=== PATIENT | female | born 1980 | race Caucasian/White ===

== ENCOUNTER 2017-07-21 08:58 | Emergency (ER) | payer SELFPAY ==
[2017-07-21 09:06] VITALS: BMI 33.4
[2017-07-21] MEDS ORDERED: NS 1000 ML 1,000 ML IV ONE (09:47)
[2017-07-21] MEDS ORDERED: NS 1000 ML 1,000 ML ONE (09:49)
--- NOTE | 2017-07-21 09:52 | DR.GENAD ---
HPI - PCP Primary Care Physician: riaz Plummer - Complaint/Symptoms Chief Complaint Doctors Comments: Patient states that he has not been feeling well for the past two weeks. He states that his started last week when he was working to build a sand well. Keara valadez has not had much energy. He admits to smoking but deneis alchols or cardiopulmonary disease. Spouse reports that patient has had a cough for the past six months. Chief Complaint:: "been down since last weekend, just not feeling right dizzy pt has high blood pressure but does not take meds for it" - Source History Provided: Patient - Mode of Arrival Mode of Arrival: Ambulatory - Timing Onset of Chief Complaint: 07/15/17 PMH - PMH Past Medical History: Yes Past Medical History: Hypertension Past Surgical History: Yes Surgical History: Appendectomy Past Surgical History Comment: left leg - Family History History of Family Medical Conditions: Yes Family Medical History: Diabetes Mellitus, Heart Failure, Hypertension - Social History Does patient currently use any type of tobacco product: Yes Have you used tobacco products in the last 12 months: Yes Type of Tobacco Use: Cigarettes How many years tobacco product used: 30 Does any household member use tobacco: No Alcohol Use: None Do you use any recreational Drugs:: Yes (weed) Lives With: Family Lives Where: Home - infectious screening In the last 2 months have you had wt loss of >10#?: NO Have you had fever, night sweats or hemotysis?: No Have you traveled outside the country in the last 6 months?: No Isolation: Standard ROS - Review of Systems Eyes: No Symptoms Reported ENTM: No Symptoms Reported Respiratoy: No Symptoms Reported Cardiovascular: No Symptoms Reported Gastrointestinal/Abdominal: No Symptoms Reported Genitourinary: No Symptoms Reported Neurological: No Symptoms Reported Musculoskeletal: No Symptoms Reported Integumentary: No Symptoms Reported Hematologic/Lymphatic: No Symptoms Reported Endocrine: No Symptoms Reported Psychiatric: No Symptoms Reported All Other Systems: Reviewed and Negative PE - Vital Signs Vitals: Temperature 98.3 F Pulse Rate [Apical] 110 Pulse Rate 100 Respiratory Rate 18 Blood Pressure [Right Arm] 140/94 Blood Pressure 144/99 O2 Sat by Pulse Oximetry 95 - General Limitations: No Limitations General Appearance: Alert, In No Apparent Distress, Anxious - Head Head Exam: Normal Inspection, Atraumatic - Eyes Eye exam: Normal Appearance, PERRL, EOMI - ENT ENT Exam: Normal Exam External Ear Exam: Normal External Inspection TM/Canal Exam: Bilateral Normal Nose Exam: Normal Nose Exam Mouth Exam: Normal Inspection Throat Exam: Normal Inspection - Neck Neck Exam: Normal Inspection - Chest Chest Inspection: Normal Inspection - Respiratory Respiratory Exam: Normal Lung Sounds Bilat Respiratory Exam: Bilateral Clear to Auscultation - Cardiovascular Cardiovascular Exam: Regular Rate, Normal Rhythm - Abdominal Exam Abdominal Exam: Normal Inspection Abdominal Tenderness: negative: RUQ, RLQ, LUQ, LLQ, Epigastrium, Suprapubic, Diffuse, Mild, Moderate, Severe, Other - Extremities Extremities Exam: Normal Inspection, Full ROM - Back Back Exam: Normal Inspection, Full ROM - Neurologic Neurological Exam: Alert, Oriented X3, CN II-XII Intact - Skin Skin Exam: Warm, Dry, Intact Course - Reevaluation 1st: Improved ROR - Labs Reviewed Result Diagrams: 07/21/17 10:00 07/21/17 10:00 Laboratory: WBC 10.5 X10^3/uL (3.6-10.0) H 07/21/17 10:00 RBC 4.95 X10^6/uL (3.5-5.4) 07/21/17 10:00 Hgb 14.9 g/dL (12.0-16.0) 07/21/17 10:00 Hct 43.5 % (36.0-47.0) 07/21/17 10:00 MCV 87.9 fL (80.0-100.0) 07/21/17 10:00 MCH 30.0 pg (27.0-34.0) 07/21/17 10:00 MCHC 34.2 g/dL (33.0-35.0) 07/21/17 10:00 RDW 13.5 % (11.6-16.5) 07/21/17 10:00 Plt Count 239 X10^3/uL (150.0-450.0) 07/21/17 10:00 MPV 8.5 fL (7.4-11.0) 07/21/17 10:00 Neut % (Auto) 65.7 % (42.0-75.0) 07/21/17 10:00 Lymph % (Auto) 25.7 % (21.0-51.0) 07/21/17 10:00 [place] % (Auto) 6.5 % (0.0-13.0) 07/21/17 10:00 Eos % (Auto) 1.4 % (0.9-2.9) 07/21/17 10:00 Baso % (Auto) 0.7 % (0.2-1.0) 07/21/17 10:00 Neut # (Auto) 6.9 x10^3/uL (2.2-4.8) H 07/21/17 10:00 Lymph # (Auto) 2.7 X10^3/uL (1.3-2.9) 07/21/17 10:00 [place] # (Auto) 0.7 x10^3/uL (0.3-0.8) 07/21/17 10:00 Eos # (Auto) 0.1 x10^3/uL (0.0-0.2) 07/21/17 10:00 Baso # (Auto) 0.1 X10^3/uL (0.0-0.1) 07/21/17 10:00 Absolute Nucleated RBC 0.1 /100WBC 07/21/17 10:00 D-Dimer 281 ng/mL (0-400) 07/21/17 10:00 Sodium 139 mmol/L (136-145) 07/21/17 10:00 Corrected Sodium 139 mmol/L (136-145) 07/21/17 10:00 Potassium 3.8 mmol/L (3.5-5.1) 07/21/17 10:00 Chloride 106 mmol/L (98-107) 07/21/17 10:00 Carbon Dioxide 23.4 mmol/L (21-32) 07/21/17 10:00 BUN 14 mg/dL (7-18) 07/21/17 10:00 Creatinine 1.05 mg/dL (0.55-1.02) H 07/21/17 10:00 Est GFR (MDRD) Af Amer > 60 (>60) 07/21/17 10:00 Est GFR (MDRD) Non-Af > 60 (>60) 07/21/17 10:00 Glucose 117 mg/dL (65-99) H 07/21/17 10:00 Calcium 7.8 mg/dL (8.5-10.1) L 07/21/17 10:00 Corrected Calcium 8.4 mg/dL (8.5-10.1) L 07/21/17 10:00 Total Bilirubin 0.50 mg/dL (0.2-1.0) 07/21/17 10:00 AST 16 Units/L (15-37) 07/21/17 10:00 ALT 29 Units/L (12-78) 07/21/17 10:00 Alkaline Phosphatase 80 Units/L (46-116) 07/21/17 10:00 Creatine Kinase 91 Units/L (26-192) 07/21/17 10:00 CK-MB (CK-2) 2.1 ng/mL (0-4.0) 07/21/17 10:00 CK/CKMB % Calc 2.3 % (<4) 07/21/17 10:00 Troponin I < 0.02 ng/mL (0-1.5) 07/21/17 10:00 Total Protein 6.6 g/dL (6.4-8.2) 07/21/17 10:00 Albumin 3.2 g/dL (3.4-5.0) L 07/21/17 10:00 Globulin 3.4 g/dL (2.5-4.5) 07/21/17 10:00 Albumin/Globulin Ratio 0.9 Ratio (1.1-2.1) L 07/21/17 10:00 - XRAY XRAY Interpreted by: Radiologist (Repeat Carmelo PA/Lat: There is again noted to be prominent lung marknings bilaterally. This may be due to chornic interstitial scarring versus interstitial prnumonia or edema. Mild cardiomegaly is presrnt. No acute bony abnormalitires are identified Impression : Mild cardiomegaly. 2. Prominent lung markings bilaterally suggestive of either chronic interstitial scarring, minimal intestitial edema or interstial pneumonititis or a combination thereof..) - Diagnosis Discharge Problem: Pneumonitis, Cardiomegaly, Chronic cough - Discharge Plan Condition: Stable - Follow ups/Referrals Follow ups/Referrals: LADONNA LAURENT [Primary Care Provider] - 3 days - Instructions
[2017-07-21 10:09] LABS: BASOPHILS # (AUTO) 0.1 X10^3/uL (0.0-0.1); BASOPHILS % (AUTO) 0.7 % (0.2-1.0); EOSINOPHILS # (AUTO) 0.1 x10^3/uL (0.0-0.2); EOSINOPHILS % (AUTO) 1.4 % (0.9-2.9); HEMATOCRIT 43.5 % (36.0-47.0); HEMOGLOBIN 14.9 g/dL (12.0-16.0); LYMPHOCYTES # (AUTO) 2.7 X10^3/uL (1.3-2.9); LYMPHOCYTES % (AUTO) 25.7 % (21.0-51.0); MEAN CORPUSCULAR HGB CONC 34.2 g/dL (33.0-35.0); MEAN CORPUSCULAR VOLUME 87.9 fL (80.0-100.0); MEAN PLATELET VOLUME 8.5 fL (7.4-11.0); MONOCYTES # (AUTO) 0.7 x10^3/uL (0.3-0.8); MONOCYTES % (AUTO) 6.5 % (0.0-13.0); NEUTROPHILS # (AUTO) 6.9 x10^3/uL (2.2-4.8); NEUTROPHILS % (AUTO) 65.7 % (42.0-75.0); PLATELET COUNT 239 X10^3/uL (150.0-450.0); RED BLOOD COUNT 4.95 X10^6/uL (3.5-5.4); RED CELL DISTRIBUTION WIDTH 13.5 % (11.6-16.5); WHITE BLOOD COUNT 10.5 X10^3/uL (3.6-10.0)
--- NOTE | 2017-07-21 10:14 | RAD ---
HISTORY: Tachycardia Study: Single view chest Comparison:None Findings: A single upright portable view is submitted. Exam is limited by underpenetration. Heart size is withi n normal limits. Nonspecific interstitial changes are seen in the lungs that could reflect underlying parenchymal disease versus artifact. No acute infiltrate, pneumothorax or effusion is identified. T he soft tissues are unremarkable. IMPRESSION: 1. Nonspecific reticulonodular interstitial changes that may be due to underlying parenchymal disease versus artifact. No acute infiltrate identified. Reported By:
[2017-07-21 10:33] LABS: BLOOD UREA NITROGEN 14 mg/dL (7-18); CALCIUM 7.8 mg/dL (8.5-10.1); CARBON DIOXIDE 23.4 mmol/L (21-32); CHLORIDE 106 mmol/L (98-107); COR NA(FOR HYPERGLY) 139 mmol/L (136-145); CREATININE 1.05 mg/dL (0.55-1.02); SODIUM 139 mmol/L (136-145); TROPONIN I < 0.02 ng/mL (0-1.5); eGFR BLACK RACES > 60 (>60); eGFR NON BLACK RACES > 60 (>60)
[2017-07-21 10:36] VITALS: BP 140/94
[2017-07-21 10:37] LABS: ALANINE AMINOTRANSFERASE 29 Units/L (12-78); ALBUMIN 3.2 g/dL (3.4-5.0); ALKALINE PHOSPHATASE 80 Units/L (46-116); ASPARTATE AMINO TRANSFERASE 16 Units/L (15-37); CKMB % 2.3 % (<4); COR CA(FOR HYPOALB) 8.4 mg/dL (8.5-10.1); CREATINE KINASE 91 Units/L (26-192); CREATINE KINASE MB 2.1 ng/mL (0-4.0); TOTAL PROTEIN 6.6 g/dL (6.4-8.2)
--- NOTE | 2017-07-21 10:42 | RAD ---
HISTORY: Tachycardia Study: PA and lateral chest Comparison: 07/21/2017 at 10:09 a.m. Findings: There is again noted to be prominent lung markings bilaterally. This may be due to chronic interstit ial scarring versus interstitial pneumonia or edema. Mild cardiomegaly is present. No acute bony ab normalities are identified. IMPRESSION: 1. Mild cardiomegaly. 2. Prominent lung markings bilaterally suggestive of either chronic interstitial scarring, minimal i nterstitial edema or interstitial pneumonitis or a combination thereof. Clinical correlation is sam mmended. Reported By:
[2017-07-21] MEDS ORDERED: DUONEB 0.5 MG/3 MG NEB ONE (10:58)
[2017-07-21] MEDS ORDERED: DUONEB 0.5 MG/3 MG ONE (11:12)
[2017-07-21] MEDS ORDERED: SOLU-Medrol 125 MG VIAL IVP ONE (11:27)
[2017-07-21] MEDS ORDERED: SOLU-Medrol 125 MG VIAL ONE (11:27)
== END 2017-07-21 11:36 | disposition home or self-care (01) ==
LOC: ER 09:11
DX: J18.9 Pneumonia, unspecified organism (principal); I51.7 Cardiomegaly; R05 Cough; R94.31 Abnormal electrocardiogram [ECG] [EKG]
CPT/HCPCS: 36415; 71045; 71046; 80053; 82550; 82553; 84484; 85025; 85378; 93005; 93010; 96365; 96374; 99283; 99284; A4222; J2930; J7620

== ENCOUNTER 2025-01-13 19:24 | Observation (INO) ==
--- NOTE | 2025-01-13 19:48 | EKG ---
Test Reason : shortness of breath Blood Pressure : */* mmHG Vent. Rate : 113 BPM Atrial Rate : 113 BPM P-R Int : 152 ms QRS Dur : 96 ms QT Int : 368 ms P-R-T Axes : 72 28 20 degrees QTc Int : 504 ms Sinus tachycardia Possible Left atrial enlargement Nonspecific T wave abnormality Abnormal ECG When compared with ECG of 10-JAN-2025 12:37, No significant change was found Confirmed by Bakari Wright MD ([id number]) on 01/14/2025 7:54:45 AM Referred By: Confirmed By: Bakari Wright MD
--- NOTE | 2025-01-13 20:11 | DR.SOBA ---
HPI Time Seen Time Seen by Provider: 01/13/25 20:11 Primary Care Physician Primary Care Physician: Elian Trejo Complaints Chief Complaint Doctors Comments: Patient was recently in the ER with worsening congestive heart failure since he stopped taking his Lasix due to not following up with his primary care after he moved. He has not followed up with his call center nurse due to difficulty with transportation but on last visit he was told he had ejection fraction of 15%. Patient admits he has not started to his fluid restriction but did take his oral Lasix. He had not wanted to be admitted on last visit wanting to try outpatient treatment first. Chief Complaint:: Pt ambulatory into ER c/o shortness of breath thats been on going for two weeks. Patient states he was seen in the ER here 2 days ago for the same complication and was discharged home on Lasix. Patient states he feels as if his symptoms have progessively became worse and causing him to have an increase in anxiety and panic attacks. Patient is SOB during exertion in triage. Pt denies chest pain, pressure or palpitations at this time. COVID-19 Coronavirus risk:travel/contact w/high risk person: No Has patient experienced Coronavirus symptoms: No Coronavirus symptoms experienced: Shortness of Breath Source History Provided: Patient Mode of Arrival Mode of Arrival: Ambulatory Timing Onset of Chief Complaint: 12/30/24 PMH PMH Past Medical History: Yes Past Medical History: CHF and Hypertension Past Surgical History: Yes Surgical History: Appendectomy and Ortho Surgery Past Surgical History Comment: defibrillator/pacemaker Family History History of Family Medical Conditions: Yes Family Medical History: Diabetes Mellitus, Cancer, [place], Heart Failure and Hypertension Social History Does patient currently use any type of tobacco product: No Have you used tobacco products in the last 12 months: No Does any household member use tobacco: No Alcohol Use: None Do you use any recreational Drugs:: Yes (Marijuana) Lives With: Family Lives Where: Home Travel Risk Coronavirus risk:travel/contact w/high risk person: No Has patient experienced Coronavirus symptoms: No Coronavirus symptoms experienced: Shortness of Breath Infectious screening In the last 2 months have you had wt loss of >10#?: NO Have you had fever, night sweats or hemotysis?: No Have you traveled outside the country in the last 6 months?: No Isolation: Standard ROS Review of Systems Constitutional: No Symptoms Reported Eyes: No Symptoms Reported ENTM: No Symptoms Reported Respiratoy: See HPI and Short of Breath; negative Wheezing Cardiovascular: See HPI; negative Chest Pain, Edema, Palpitations or Syncope Gastrointestinal/Abdominal: No Symptoms Reported Genitourinary: No Symptoms Reported Neurological: No Symptoms Reported Musculoskeletal: No Symptoms Reported Integumentary: No Symptoms Reported Hematologic/Lymphatic: No Symptoms Reported Endocrine: No Symptoms Reported Psychiatric: No Symptoms Reported All Other Systems: Reviewed and Negative PE Vital Signs Vitals: Vital Signs Temperature 98.0 F Pulse Rate 109 Pulse Rate 112 Pulse Rate 114 Pulse Rate 110 Respiratory Rate 35 Respiratory Rate 31 Respiratory Rate 22 Blood Pressure 144/92 Blood Pressure 146/91 O2 Sat by Pulse Oximetry 95 O2 Sat by Pulse Oximetry 96 O2 Sat by Pulse Oximetry 97 O2 Sat by Pulse Oximetry 98 General Limitations: No Limitations General Appearance: Alert and In No Apparent Distress Head Head Exam: Normal Inspection Eyes Eye exam: Normal Appearance ENT ENT Exam: Normal Exam Neck Neck Exam: Normal Inspection Chest Chest Inspection: Normal Inspection Respiratory Respiratory Exam: Other (Coarse bilaterally) Cardiovascular Cardiovascular Exam: Regular Rate and Normal Rhythm Abdominal Exam Abdominal Exam: Normal Inspection, Normal Bowel Sounds and Soft Extremities Extremities Exam: Normal Inspection Back Back Exam: Normal Inspection Neurologic Neurological Exam: Alert and Oriented X3 Psychiatric Psychiatric Exam: Normal Affect and Normal Mood Skin Skin Exam: Warm, Dry, Intact and Normal Color COURSE Treatment Treatment: Discussed results of workup with patient. He is agreeable to admission at this time. No pulmonary embolism but he does have significant CHF exacerbation. Consultation Called: 22:24 Consultation Comments: Discussed case with Dr. Trujillo and she is agreeable to admission ROR Labs Reviewed Laboratory Results Reviewed?: Yes 01/13/25 20:01 01/13/25 20:01 Laboratory: WBC 11.2 X10^3/uL (3.6-10.0) H 01/13/25 20: RBC 5.00 X10^6/uL (4.7-6.0) 01/13/25 20:01 Hgb 14.8 g/dL (13.5-18.0) 01/13/25 20: Hct 44.8 % (42.0-54.0) 01/13/25 20: MCV 89.6 fL (80.0-100.0) 01/13/25 20: MCH 29.7 pg (27.0-34.0) 01/13/25 20:01 MCHC 33.1 g/dL (33.0-35.0) 01/13/25 20: RDW 14.3 % (11.6-16.5) 01/13/25 20: Plt Count 287 X10^3/uL (150.0-450.0) 01/13/25 20: MPV 8.9 fL (7.4-11.0) 01/13/25 20: Neut % (Auto) 68.1 % (42.0-75.0) 01/13/25 20: Lymph % (Auto) 23.1 % (21.0-51.0) 01/13/25 20: [place] % (Auto) 6.9 % (0.0-13.0) 01/13/25 20: Eos % (Auto) 1.3 % (0.9-2.9) 01/13/25 20: Baso % (Auto) 0.6 % (0.2-1.0) 01/13/25 20: Neut # (Auto) 7.6 x10^3/uL (2.2-4.8) H 01/13/25 20: Lymph # (Auto) 2.6 X10^3/uL (1.3-2.9) 01/13/25 20:01 [place] # (Auto) 0.8 x10^3/uL (0.3-0.8) 01/13/25 20:01 Eos # (Auto) 0.1 x10^3/uL (0.0-0.2) 01/13/25 20:01 Baso # (Auto) 0.1 X10^3/uL (0.0-0.1) 01/13/25 20: Absolute Nucleated RBC 0.1 /100WBC 01/13/25 20: D-Dimer 1.30 ug/ml (0.0-0.57) H 01/13/25 20:01 Sodium 143 mmol/L (136-145) 01/13/25 20:01 Corrected Sodium 143 mmol/L (136-145) 01/13/25 20: Potassium 3.2 mmol/L (3.5-5.1) L 01/13/25 20: Chloride 102 mmol/L (98-107) 01/13/25 20: Carbon Dioxide 29.9 mmol/L (21-32) 01/13/25 20: BUN 10 mg/dL (7-18) 01/13/25 20: Creatinine 1.42 mg/dL (0.70-1.30) H 01/13/25 20:01 Est GFR (MDRD) Af Amer > 60 (>60) 01/13/25 20:01 Est GFR (MDRD) Non-Af 57 (>60) L 01/13/25 20: Glucose 114 mg/dL (65-99) H 01/13/25 20: Calcium 8.3 mg/dL (8.5-10.1) L 01/13/25 20: Corrected Calcium TNP 01/13/25 20: Total Bilirubin 0.90 mg/dL (0.2-1.0) 01/13/25 20:01 AST 43 Units/L (15-37) H 01/13/25 20: ALT 65 Units/L (12-78) 01/13/25 20:01 Alkaline Phosphatase 82 Units/L (46-116) 01/13/25 20: Creatine Kinase 211 Units/L (39-308) 01/13/25 20: Troponin I High Sens 25.8 ng/L (4.0-60.0) 01/13/25 20: B-Natriuretic Peptide 2850 pg/mL (0-79) H 01/13/25 20:01 Total Protein 7.2 g/dL (6.4-8.2) 01/13/25 20: Albumin 3.4 g/dL (3.4-5.0) 01/13/25 20: Globulin 3.8 g/dL (2.5-4.5) 01/13/25 20: Albumin/Globulin Ratio 0.9 Ratio (1.1-2.1) L 01/13/25 20: Other Results Comments: Name: RAKESH ZARATE : 1980 Sex: M Location: Order Number(s): [id number] Procedure(s):CTA, CHEST Ordering Physician: Bud Caba Primary Care: NFD,None Service Date: 01/13/25 Service Time: 2036 EXAM: CTA CHEST WITH INTRAVENOUS CONTRAST HISTORY: Shortness of breath. Elevated D-dimer. TECHNIQUE: Spiral axial CT images are obtained through the chest with the administration of intravenous contrast. Coronal, sagittal and 3D MIP images are reformatted. COMPARISON: None available. FINDINGS: CARDIOVASCULAR: There is no evidence for pulmonary embolic disease. There is moderate to severe cardiomegaly with four-chamber enlargement. No pericardial effusion is seen. No aortic aneurysm, dissection, or rupture is seen. MEDIASTINUM AND JARRETT: No mass lesion, lymphadenopathy, emphysema, or abnormal fluid collection is seen. LUNGS: There is there is severe diffuse pulmonary vascularity and interstitial prominence consistent with severe CHF. There are large bilateral pleural effusions, right greater than left, consistent with CHF. Mild platelike atelectatic changes are seen in the lower lobes. No endobronchial obstructing lesion or pneumothorax is seen. No suspicious lung mass or nodule is seen. CHEST WALL: There are no chest wall lesions seen. No axillary lymphadenopathy is noted. BONES AND JOINTS: There is no acute fracture or joint subluxation/dislocation seen. UPPER ABDOMEN: Limited views through the upper abdomen demonstrate no gross acute abnormality. There is a small collapsed hiatal hernia. IMPRESSION: 1. No evidence for pulmonary embolic disease. 2. No evidence for aortic aneurysm or aortic dissection. 3. Moderate to severe cardiomegaly and severe diffuse pulmonary vascularity and interstitial prominence consistent with severe CHF. 4. Large bilateral pleural effusions, right greater than left, consistent with CHF. 5. Mild platelike atelectatic changes are seen in the lower lobes. 6. No suspicious mass or lymphadenopathy is seen. 7. Small hiatal hernia. THIS IS AN ELECTRONICALLY VERIFIED FINAL REPORT 01/13/2025 9:58 PM - Electronically signed by Ashvin Rondon MD XRAY XRAY Interpreted by: Self (Chest x-ray reviewed and interpreted by myself. Cardiomegaly and signs of CHF exacerbation noted.) EKG Rate: 113 [place]: Normal Rhythm: ST ST: Normal Opioid Opioid Risk Tool Age (Dipak box if 16-45): No History of Preadolescent Sexual Abuse: No Total: 0 Total Score Risk Category: Low Risk Copyright: [facility] predicting aberrant behaviors Discharge Plan Diagnosis Discharge Problem: Acute exacerbation of CHF (congestive heart failure) Qualifiers: Heart failure type: unspecified Qualified Code(s): I50.9 - Heart failure, unspecified Discharge Plan Patient Disposition: ADMITTED INPATIENT Condition: Stable Prescriptions: No Action furosemide [Lasix] 20 mg tablet 20 mg PO QAM Qty: 14 0RF Health Concerns: Post Hospitalization: new medications and changes needed to prevent readmission or further decline. Pt educated and given instructions on all concerns. Plan of Treatment: Continue with present treatment and follow up plan. Pt is to keep follow up appointment as instructed and take medications as ordered. Orders to Discharge Patient Discharge Orders: Transfer (Routine); Ordered 01/13/25 Ordered By: Bud Caba Follow ups/Referrals Follow ups/Referrals: NFD,None [Primary Care Provider] - 3 days Instructions Stand Alone Forms: Find Help Web Site, Post Hospital Follow Up Care Print Language: IRISH
[2025-01-13 20:22] LABS: MEAN PLATELET VOLUME 8.9 fL (7.4-11.0); RED CELL DISTRIBUTION WIDTH 14.3 % (11.6-16.5)
[2025-01-13 20:35] LABS: COR NA(FOR HYPERGLY) 143 mmol/L (136-145); CREATININE 1.42 mg/dL (0.70-1.30); eGFR NON BLACK RACES 57 (>60)
[2025-01-13] MEDS: K-DUR TAB 20 MEQ PO ONE (20:43)
[2025-01-13] MEDS: LASIX IVP ONE (20:43)
[2025-01-13] MEDS ORDERED: OMNIPAQUE 350 mg/mL 100 mL BTL 100 ML ONE (20:49)
[2025-01-13] MEDS: OMNIPAQUE 350 mg/mL 100 mL BTL IVP NR (21:02)
--- NOTE | 2025-01-13 22:01 | CT ---
EXAM: CTA CHEST WITH INTRAVENOUS CONTRAST HISTORY: Shortness of breath. Elevated D-dimer. TECHNIQUE: Spiral axial CT images are obtained through the chest with the administration of intravenous contrast. Coronal, sagittal and 3D MIP images are reformatted. COMPARISON: None available. FINDINGS: CARDIOVASCULAR: There is no evidence for pulmonary embolic disease. There is moderate to severe cardiomegaly with four-chamber enlargement. No pericardial effusion is seen. No aortic aneurysm, dissection, or rupture is seen. MEDIASTINUM AND JARRETT: No mass lesion, lymphadenopathy, emphysema, or abnormal fluid collection is seen. LUNGS: There is there is severe diffuse pulmonary vascularity and interstitial prominence consistent with severe CHF. There are large bilateral pleural effusions, right greater than left, consistent with CHF. Mild platelike atelectatic changes are seen in the lower lobes. No endobronchial obstructing lesion or pneumothorax is seen. No suspicious lung mass or nodule is seen. CHEST WALL: There are no chest wall lesions seen. No axillary lymphadenopathy is noted. BONES AND JOINTS: There is no acute fracture or joint subluxation/dislocation seen. UPPER ABDOMEN: Limited views through the upper abdomen demonstrate no gross acute abnormality. There is a small collapsed hiatal hernia. IMPRESSION: 1. No evidence for pulmonary embolic disease. 2. No evidence for aortic aneurysm or aortic dissection. 3. Moderate to severe cardiomegaly and severe diffuse pulmonary vascularity and interstitial prominence consistent with severe CHF. 4. Large bilateral pleural effusions, right greater than left, consistent with CHF. 5. Mild platelike atelectatic changes are seen in the lower lobes. 6. No suspicious mass or lymphadenopathy is seen. 7. Small hiatal hernia. THIS IS AN ELECTRONICALLY VERIFIED FINAL REPORT 01/13/2025 9:58 PM - Electronically signed by Ashvin Rondon MD
[2025-01-13] MEDS ORDERED: CONSULT PHARMACY - POTASSIUM & MAGNESIUM XX SCH (23:43)
[2025-01-13] MEDS ORDERED: MORPHINE SULFATE INJ 2 MG INJ IVP PRN (23:43)
[2025-01-13] MEDS ORDERED: TYLENOL 325 MG TAB PO PRN (23:43)
[2025-01-13] MEDS ORDERED: ULTRAM PO PRN (23:43)
[2025-01-13] MEDS ORDERED: NORCO 5/325 MG TAB PO PRN (23:43)
[2025-01-14] MEDS: K-DUR TAB 20 MEQ PO SCH (00:04)
[2025-01-14 00:51] VITALS: BMI 33.0
--- NOTE | 2025-01-14 05:52 | RAD ---
EXAM: CHEST, 1 VIEW HISTORY: SOB; COMPARISON: 01/10/2025 FINDINGS: The trachea is midline. The cardiac silhouette is mildly enlarged. Permanent pacing device.. The lungs are clear without focal infiltrate or effusion. The bony thorax is unremarkable. IMPRESSION: Mild cardiomegaly No active cardiopulmonary disease THIS IS AN ELECTRONICALLY VERIFIED FINAL REPORT 01/14/2025 5:49 AM - Electronically signed by Manas Donaldson MD
[2025-01-14 06:21] LABS: MEAN PLATELET VOLUME 9.0 fL (7.4-11.0); RED CELL DISTRIBUTION WIDTH 13.9 % (11.6-16.5)
[2025-01-14 06:40] LABS: COR CA(FOR HYPOALB) 8.9 mg/dL (8.5-10.1); COR NA(FOR HYPERGLY) 142 mmol/L (136-145); CREATININE 1.20 mg/dL (0.70-1.30); eGFR NON BLACK RACES > 60 (>60)
--- NOTE | 2025-01-14 07:07 | RAD ---
EXAMINATION: CHEST, 1 VIEW HISTORY: CHF, EXACERBATION ; HTN, CHF SX: APPY, ORTHO, DEFIB/PACEMAKER . COMPARISON STUDY: Chest x-ray 01/13/2025 TECHNIQUE: Single frontal view of the chest FINDINGS: Lungs are expanded. Patchy interstitial alveolar infiltrates scattered in both lungs. Moderate cardiac silhouette enlargement. Mild pulmonary vascular congestion. Cardiac pacer device left upper chest. Bones are unchanged. IMPRESSION: Bilateral pulmonary infiltrates. Cardiac silhouette enlargement with pulmonary vascular congestion. THIS IS AN ELECTRONICALLY VERIFIED FINAL REPORT 01/14/2025 7:04 AM - Electronically signed by Gogo Alejandro MD
[2025-01-14] MEDS ORDERED: LASIX IVP SCH (09:00)
[2025-01-14] MEDS: LASIX IVP SCH (09:09)
[2025-01-14] MEDS: ENTRESTO 49/51 MG TABLET PO SCH (10:19)
[2025-01-14] MEDS ORDERED: PHARMACY CONSULT XX SCH (11:00)
[2025-01-15 06:28] LABS: MEAN PLATELET VOLUME 8.7 fL (7.4-11.0); RED CELL DISTRIBUTION WIDTH 14.4 % (11.6-16.5)
[2025-01-15 06:37] LABS: COR CA(FOR HYPOALB) 8.8 mg/dL (8.5-10.1); COR NA(FOR HYPERGLY) 140 mmol/L (136-145); CREATININE 1.38 mg/dL (0.70-1.30); eGFR NON BLACK RACES 59 (>60)
[2025-01-15] MEDS ORDERED: CONSULT PHARMACY - POTASSIUM & MAGNESIUM XX SCH (07:00)
[2025-01-15 07:14] VITALS: BP 114/75; PULSE 102; RESP 16; TEMP 98.3; O2SAT 97
[2025-01-15] MEDS: K-DUR TAB 20 MEQ PO SCH (08:07)
--- NOTE | 2025-01-15 10:44 | DR.H&P ---
H&P History & Physical for Day of: H&P Date: 01/14/25 Chief Complaint Chief Complaint: shortness of breath History of Present Illness History of Present Illness: Patient is a 44-year-old male with a past medical history of CHF, defibrillator, presenting with significant shortness of breath. He reports symptoms have been progressively getting worse over the past week. He has been out of some of his medications due to financial. Labs/imaging: WBC 9.5, hemoglobin 14.7, platelets 281, sodium 142, potassium 3.9, creatinine 1.20, glucose 111, troponin negative, BNP 3080, CTA and chest x-ray revealed findings consistent of congestive heart failure exacerbation including large pleural effusion. Patient did have elevated D-dimer but CTA was negative for PE. Patient was started on IV Lasix, will increase that to 40 mg twice daily. Monitor I's and O's. Cardiac diet. Will order an echo. Patient has stated that his EF is around 13 to 15%. Otherwise restart other home medications. Continue with current treatment plan and follow-up labs/imaging. Past Medical History Past Medical History: CHF and Hypertension Past Surgical History Surgical History: Appendectomy and Ortho Surgery Family History Family Medical History: Diabetes Mellitus, Cancer, [place], Heart Failure and Hypertension Social History Does patient currently use any type of tobacco product: No Have you used tobacco products in the last 12 months: No Type of Tobacco Use: None Does any household member use tobacco: No Alcohol Use: None Drug Use: Marijuana Allergies Allergies Allergy/AdvReac Type Severity Reaction Status Date / Time No Known Drug Allergies Allergy Verified 01/13/25 19:42 Labs 01/15/25 05:21 01/15/25 05:21 Labs: Laboratory WBC 10.1 X10^3/uL (3.6-10.0) H 01/15/25 05:21 RBC 5.09 X10^6/uL (4.7-6.0) 01/15/25 05:21 Hgb 15.5 g/dL (13.5-18.0) 01/15/25 05:21 Hct 45.9 % (42.0-54.0) 01/15/25 05:21 MCV 90.2 fL (80.0-100.0) 01/15/25 05:21 MCH 30.5 pg (27.0-34.0) 01/15/25 05:21 MCHC 33.8 g/dL (33.0-35.0) 01/15/25 05:21 RDW 14.4 % (11.6-16.5) 01/15/25 05:21 Plt Count 274 X10^3/uL (150.0-450.0) 01/15/25 05:21 MPV 8.7 fL (7.4-11.0) 01/15/25 05:21 Neut % (Auto) 60.9 % (42.0-75.0) 01/15/25 05:21 Lymph % (Auto) 27.9 % (21.0-51.0) 01/15/25 05:21 [place] % (Auto) 7.6 % (0.0-13.0) 01/15/25 05:21 Eos % (Auto) 2.9 % (0.9-2.9) 01/15/25 05:21 Baso % (Auto) 0.7 % (0.2-1.0) 01/15/25 05:21 Neut # (Auto) 6.2 x10^3/uL (2.2-4.8) H 01/15/25 05:21 Lymph # (Auto) 2.8 X10^3/uL (1.3-2.9) 01/15/25 05:21 [place] # (Auto) 0.8 x10^3/uL (0.3-0.8) 01/15/25 05:21 Eos # (Auto) 0.3 x10^3/uL (0.0-0.2) H 01/15/25 05:21 Baso # (Auto) 0.1 X10^3/uL (0.0-0.1) 01/15/25 05:21 Absolute Nucleated RBC 0.6 /100WBC 01/15/25 05:21 D-Dimer 1.30 ug/ml (0.0-0.57) H 01/13/25 20:01 Sodium 140 mmol/L (136-145) 01/15/25 05:21 Corrected Sodium 140 mmol/L (136-145) 01/15/25 05:21 Potassium 3.5 mmol/L (3.5-5.1) 01/15/25 05:21 Chloride 102 mmol/L (98-107) 01/15/25 05:21 Carbon Dioxide 30.8 mmol/L (21-32) 01/15/25 05:21 BUN 15 mg/dL (7-18) 01/15/25 05:21 Creatinine 1.38 mg/dL (0.70-1.30) H 01/15/25 05:21 Est GFR (MDRD) Af Amer > 60 (>60) 01/15/25 05:21 Est GFR (MDRD) Non-Af 59 (>60) 01/15/25 05:21 Glucose 113 mg/dL (65-99) H 01/15/25 05:21 Calcium 8.1 mg/dL (8.5-10.1) L 01/15/25 05:21 Corrected Calcium 8.8 mg/dL (8.5-10.1) 01/15/25 05:21 Magnesium 2.1 mg/dL (2.0-2.9) 01/14/25 06:00 Total Bilirubin 0.80 mg/dL (0.2-1.0) 01/15/25 05:21 AST 32 Units/L (15-37) 01/15/25 05:21 ALT 51 Units/L (12-78) 01/15/25 05:21 Alkaline Phosphatase 84 Units/L (46-116) 01/15/25 05:21 Creatine Kinase 211 Units/L (39-308) 01/13/25 20:01 Troponin I High Sens 25.8 ng/L (4.0-60.0) 01/13/25 20:01 B-Natriuretic Peptide 2400 pg/mL (0-79) H 01/15/25 05:21 Total Protein 6.8 g/dL (6.4-8.2) 01/15/25 05:21 Albumin 3.1 g/dL (3.4-5.0) L 01/15/25 05:21 Globulin 3.7 g/dL (2.5-4.5) 01/15/25 05:21 Albumin/Globulin Ratio 0.8 Ratio (1.1-2.1) L 01/15/25 05:21 Review of Systems Constitutional: No Symptoms Reported Eyes: No Symptoms Reported ENT: No Symptoms Reported Respiratory: Shortness of Breath Cardiovascular: No Symptoms Reported Gastrointestinal: No Symptoms Reported Genitourinary: No Symptoms Reported Musculoskeletal: No Symptoms Reported Skin: No Symptoms Reported Neurological: No Symptoms Reported Physical Exam Vital Signs: Vital Signs Temperature 98.3 F Temperature 97.7 F Pulse Rate [Right Radial] 102 Pulse Rate [Right Radial] 103 Respiratory Rate 16 Respiratory Rate 20 Blood Pressure [Left Arm] 114/75 Blood Pressure [Left Arm] 122/79 O2 Sat by Pulse Oximetry 97 O2 Sat by Pulse Oximetry 95 Oriented: Normal Eyes: Normal Ear: Normal Nose: Normal Throat: Normal Respiratory: Clear Throughout Cardiovascular: Normal : Normal Auscultation: Bowel Sounds: Normal Palpation: Normal Tenderness: Normal Skin: Normal Musculoskeletal: Normal Psychiatric: Normal Mood Description: Calm and Appropriate Affect: Normal Speech Pattern: Clear and Appropriate Assessment/Plan (1) Acute exacerbation of CHF (congestive heart failure): Qualifiers: Heart failure type: unspecified Qualified Code(s): I50.9 - Heart failure, unspecified Status: Acute (2) Cardiomegaly: Status: Acute (3) Pleural effusion: Status: Acute (4) Cardiac defibrillator in place: Status: Acute Review H&P Reviewed: Yes Patient was examined?: Yes
--- NOTE | 2025-01-15 11:14 | W.DIS.FURT ---
Summary of Discharge Discharge Summary of Date Date of Exam: 01/15/25 Admission Date Date of Admission: 01/13/25 Admission Diagnosis Patient Problems (Updated 01/15/25 @ 10:43 by Ross Miranda MD) Acute exacerbation of CHF (congestive heart failure) (Acute) I50.9 Hospital Course: Patient is a 44-year-old male with a past medical history of CHF, defibrillator, admitted for CHF exacerbation. This morning he is resting in bed, no acute events overnight. He reports feeling significantly better and his breathing has improved back to his baseline. He has had good urinary output. Labs/imaging: WBC 10.1, hemoglobin 15.5, platelets 274, sodium 140, potassium 3.5, creatinine 1.38, glucose 113. Patient has significantly improved with treatment. He is stable for discharge. He does have his medications at home and we will prescribe the medications that he was taking that he does not have a prescription for. He was instructed to follow-up with his PCP and cardiology outpatient in 3 to 5 days. Vital Signs: Vital Signs (72 hours) 01/13/25 19:28 01/13/25 19:42 01/13/25 19:42 Temperature 98.0 F Pulse Rate 110 H 114 H Pulse Rate [Right Radial] Respiratory Rate 22 Blood Pressure 146/91 144/92 Blood Pressure [Left Arm] O2 Sat by Pulse Oximetry 98 97 Oxygen Delivery Method Room Air Oxygen Flow Rate FIO2% 01/13/25 19:45 01/13/25 20:00 01/13/25 20:15 Temperature Pulse Rate 112 H 109 H 107 H Pulse Rate [Right Radial] Respiratory Rate 31 H 35 H 29 H Blood Pressure Blood Pressure [Left Arm] O2 Sat by Pulse Oximetry 96 95 95 Oxygen Delivery Method Oxygen Flow Rate FIO2% 01/13/25 20:30 01/13/25 20:45 01/13/25 21:06 Temperature Pulse Rate 106 H 104 H 113 H Pulse Rate [Right Radial] Respiratory Rate 29 H Blood Pressure Blood Pressure [Left Arm] O2 Sat by Pulse Oximetry 97 97 Oxygen Delivery Method Oxygen Flow Rate FIO2% 01/13/25 21:08 01/13/25 21:08 01/13/25 21:15 Temperature Pulse Rate 109 H 108 H Pulse Rate [Right Radial] Respiratory Rate 18 22 Blood Pressure 135/74 Blood Pressure [Left Arm] O2 Sat by Pulse Oximetry 96 97 Oxygen Delivery Method Oxygen Flow Rate FIO2% 01/13/25 21:30 01/13/25 21:45 01/13/25 22:00 Temperature Pulse Rate 106 H 109 H 107 H Pulse Rate [Right Radial] Respiratory Rate 30 H 30 H 29 H Blood Pressure Blood Pressure [Left Arm] O2 Sat by Pulse Oximetry 95 94 L 95 Oxygen Delivery Method Oxygen Flow Rate FIO2% 01/13/25 22:15 01/13/25 22:30 01/13/25 22:45 Temperature Pulse Rate 115 H 107 H 104 H Pulse Rate [Right Radial] Respiratory Rate 26 H 14 25 H Blood Pressure Blood Pressure [Left Arm] O2 Sat by Pulse Oximetry 93 L 96 95 Oxygen Delivery Method Oxygen Flow Rate FIO2% 01/13/25 22:47 01/13/25 22:47 01/13/25 23:00 Temperature 98.7 F Pulse Rate 104 H Pulse Rate [Right Radial] 96 H Respiratory Rate 24 16 Blood Pressure Blood Pressure [Left Arm] 132/85 O2 Sat by Pulse Oximetry 96 100 Oxygen Delivery Method Nasal Cannula Nasal Cannula Oxygen Flow Rate 2 2 FIO2% 01/13/25 23:15 01/13/25 23:37 01/13/25 23:59 Temperature Pulse Rate 111 H 110 H Pulse Rate [Right Radial] Respiratory Rate 15 Blood Pressure Blood Pressure [Left Arm] O2 Sat by Pulse Oximetry 100 94 L Oxygen Delivery Method Nasal Cannula Oxygen Flow Rate 2 FIO2% 28 01/14/25 04:00 01/14/25 04:00 01/14/25 07:00 Temperature 98.1 F 98.1 F Pulse Rate Pulse Rate [Right Radial] 97 H 110 H Respiratory Rate 19 19 Blood Pressure Blood Pressure [Left Arm] 124/77 124/77 O2 Sat by Pulse Oximetry 97 97 Oxygen Delivery Method Nasal Cannula Nasal Cannula Nasal Cannula Oxygen Flow Rate 2 2 2 FIO2% 01/14/25 07:45 01/14/25 07:47 01/14/25 11:55 Temperature 97.7 F 97.9 F Pulse Rate Pulse Rate [Right Radial] 102 H 105 H Respiratory Rate 17 18 Blood Pressure Blood Pressure [Left Arm] 126/91 99/61 O2 Sat by Pulse Oximetry 97 93 L Oxygen Delivery Method Room Air Nasal Cannula Nasal Cannula Oxygen Flow Rate 2 2 2 FIO2% 28 01/14/25 15:45 01/14/25 19:00 01/14/25 19:40 Temperature 98.2 F 97.8 F Pulse Rate Pulse Rate [Right Radial] 105 H 108 H Respiratory Rate 20 20 Blood Pressure Blood Pressure [Left Arm] 115/74 116/80 O2 Sat by Pulse Oximetry 97 94 L Oxygen Delivery Method Nasal Cannula Nasal Cannula Nasal Cannula Oxygen Flow Rate 2 2 2 FIO2% 01/14/25 21:18 01/14/25 23:52 01/15/25 03:53 Temperature 97.9 F 97.7 F Pulse Rate Pulse Rate [Right Radial] 108 H 103 H Respiratory Rate 20 20 Blood Pressure Blood Pressure [Left Arm] 101/67 122/79 O2 Sat by Pulse Oximetry 98 95 Oxygen Delivery Method Nasal Cannula Nasal Cannula Nasal Cannula Oxygen Flow Rate 2 2 2 FIO2% 28 01/15/25 07:00 01/15/25 07:13 01/15/25 08:25 Temperature 98.3 F Pulse Rate Pulse Rate [Right Radial] 102 H Respiratory Rate 16 Blood Pressure Blood Pressure [Left Arm] 114/75 O2 Sat by Pulse Oximetry 97 Oxygen Delivery Method Nasal Cannula Nasal Cannula Room Air Oxygen Flow Rate 2 2 2 FIO2% 28 Labs: Laboratory Last Values WBC 10.1 X10^3/uL (3.6-10.0) H 01/15/25 05:21 RBC 5.09 X10^6/uL (4.7-6.0) 01/15/25 05:21 Hgb 15.5 g/dL (13.5-18.0) 01/15/25 05:21 Hct 45.9 % (42.0-54.0) 01/15/25 05:21 MCV 90.2 fL (80.0-100.0) 01/15/25 05:21 MCH 30.5 pg (27.0-34.0) 01/15/25 05:21 MCHC 33.8 g/dL (33.0-35.0) 01/15/25 05:21 RDW 14.4 % (11.6-16.5) 01/15/25 05:21 Plt Count 274 X10^3/uL (150.0-450.0) 01/15/25 05:21 MPV 8.7 fL (7.4-11.0) 01/15/25 05:21 Neut % (Auto) 60.9 % (42.0-75.0) 01/15/25 05:21 Lymph % (Auto) 27.9 % (21.0-51.0) 01/15/25 05:21 [place] % (Auto) 7.6 % (0.0-13.0) 01/15/25 05:21 Eos % (Auto) 2.9 % (0.9-2.9) 01/15/25 05:21 Baso % (Auto) 0.7 % (0.2-1.0) 01/15/25 05:21 Neut # (Auto) 6.2 x10^3/uL (2.2-4.8) H 01/15/25 05:21 Lymph # (Auto) 2.8 X10^3/uL (1.3-2.9) 01/15/25 05:21 [place] # (Auto) 0.8 x10^3/uL (0.3-0.8) 01/15/25 05:21 Eos # (Auto) 0.3 x10^3/uL (0.0-0.2) H 01/15/25 05:21 Baso # (Auto) 0.1 X10^3/uL (0.0-0.1) 01/15/25 05:21 Absolute Nucleated RBC 0.6 /100WBC 01/15/25 05:21 D-Dimer 1.30 ug/ml (0.0-0.57) H 01/13/25 20:01 Sodium 140 mmol/L (136-145) 01/15/25 05:21 Corrected Sodium 140 mmol/L (136-145) 01/15/25 05:21 Potassium 3.5 mmol/L (3.5-5.1) 01/15/25 05:21 Chloride 102 mmol/L (98-107) 01/15/25 05:21 Carbon Dioxide 30.8 mmol/L (21-32) 01/15/25 05:21 BUN 15 mg/dL (7-18) 01/15/25 05:21 Creatinine 1.38 mg/dL (0.70-1.30) H 01/15/25 05:21 Est GFR (MDRD) Af Amer > 60 (>60) 01/15/25 05:21 Est GFR (MDRD) Non-Af 59 (>60) 01/15/25 05:21 Glucose 113 mg/dL (65-99) H 01/15/25 05:21 Calcium 8.1 mg/dL (8.5-10.1) L 01/15/25 05:21 Corrected Calcium 8.8 mg/dL (8.5-10.1) 01/15/25 05:21 Magnesium 2.1 mg/dL (2.0-2.9) 01/14/25 06:00 Total Bilirubin 0.80 mg/dL (0.2-1.0) 01/15/25 05:21 AST 32 Units/L (15-37) 01/15/25 05:21 ALT 51 Units/L (12-78) 01/15/25 05:21 Alkaline Phosphatase 84 Units/L (46-116) 01/15/25 05:21 Creatine Kinase 211 Units/L (39-308) 01/13/25 20:01 Troponin I High Sens 25.8 ng/L (4.0-60.0) 01/13/25 20:01 B-Natriuretic Peptide 2400 pg/mL (0-79) H 01/15/25 05:21 Total Protein 6.8 g/dL (6.4-8.2) 01/15/25 05:21 Albumin 3.1 g/dL (3.4-5.0) L 01/15/25 05:21 Globulin 3.7 g/dL (2.5-4.5) 01/15/25 05:21 Albumin/Globulin Ratio 0.8 Ratio (1.1-2.1) L 01/15/25 05:21 Reason For Visit: CHF EXACERBATION Discharge Date Discharge Date: 01/15/25 Discharge Diagnosis All Active Problems (Updated 01/15/25 @ 10:43 by Ross Miranda MD) Cardiac defibrillator in place (Acute) Pleural effusion (Acute) Acute exacerbation of CHF (congestive heart failure) (Acute) Cellulitis of hand, left (Acute) Chronic cough (Acute) Cardiomegaly (Acute) Pneumonitis (Acute) Plan of Treatment: Continue with present treatment and follow up plan. Pt is to keep follow up appointment as instructed and take medications as ordered. Discharge Medications Discharge Medications: No Known Drug Allergies Allergy (Verified 01/13/25 19:42) New Prescriptions albuterol sulfate 90 mcg/actuation aerosol inhaler (Ventolin HFA) 2 puff inhalation Q4-6H PRN #8.5 grams 01/15/25 [Rx] carvedilol 3.125 mg tablet (Coreg) 3.125 mg PO BID 30 days #60 tabs 01/15/25 [Rx] furosemide 20 mg tablet (Lasix) 40 mg (2 x 20 mg) PO QAM 30 days #60 tabs 01/15/25 [Rx] potassium chloride 10 mEq tablet,extended release (Klor-Con) 10 meq PO QDAY #30 tabs 01/15/25 [Rx] sacubitril 97 mg-valsartan 103 mg tablet (Entresto) 1 tab PO BID #60 tabs 01/15/25 [Rx] spironolactone 25 mg tablet 12.5 mg (1/2 x 25 mg) PO QDAY 30 days #15 tabs 01/15/25 [Rx] Discharge Plan Discharge Plan Hospital Course: Patient is a 44-year-old male with a past medical history of CHF, defibrillator, admitted for CHF exacerbation. This morning he is resting in bed, no acute events overnight. He reports feeling significantly better and his breathing has improved back to his baseline. He has had good urinary output. Labs/imaging: WBC 10.1, hemoglobin 15.5, platelets 274, sodium 140, potassium 3.5, creatinine 1.38, glucose 113. Patient has significantly improved with treatment. He is stable for discharge. He does have his medications at home and we will prescribe the medications that he was taking that he does not have a prescription for. He was instructed to follow-up with his PCP and cardiology outpatient in 3 to 5 days. Patient Disposition: 01 HOME, SELF-CARE Condition: Stable Health Concerns: Post Hospitalization: new medications and changes needed to prevent readmission or further decline. Pt educated and given instructions on all concerns. Plan of Treatment: Continue with present treatment and follow up plan. Pt is to keep follow up appointment as instructed and take medications as ordered. Prescriptions: New carvedilol [Coreg] 3.125 mg tablet 3.125 mg PO BID 30 Days Qty: 60 0RF Rx Instructions: must administer with a meal/food potassium chloride [Klor-Con 10] 10 mEq tablet extended release 10 meq PO QDAY Qty: 30 0RF spironolactone 25 mg tablet 12.5 mg PO QDAY 30 Days Qty: 15 0RF albuterol sulfate [Ventolin HFA] 90 mcg/actuation HFA aerosol inhaler 2 puff inhalation Q4-6H PRNQty: 8.5 0RF sacubitril-valsartan [Entresto] 97-103 mg tablet 1 tab PO BID Qty: 60 0RF Changed furosemide [Lasix] 20 mg tablet 40 mg PO QAM 30 Days Qty: 60 0RF Orders to Discharge Patient Discharge Orders: Discharge (Routine); Ordered 01/15/25 Ordered By: Ross Miranda Follow ups/Referrals Follow ups/Referrals: [facility],None [Primary Care Provider] - 3 days Instructions Stand Alone Forms: Excuse From Work or School, Find Help Web Site, Post Hospital Follow Up Care Print Language: INDONESIAN
== END 2025-01-15 11:20 | disposition home or self-care (01) ==
LOC: ER 19:24 → MED/SURG 19:24
PROVIDERS: ADMIT Internal Medicine; ATTEND Internal Medicine
DX: R00.0 Tachycardia, unspecified; E83.51 Hypocalcemia; I11.0 Hypertensive heart disease with heart failure; I50.89 Other heart failure; J90 Pleural effusion, not elsewhere classified; D72.828 Other elevated white blood cell count; R73.09 Other abnormal glucose; K44.9 Diaphragmatic hernia without obstruction or gangrene; R79.1 Abnormal coagulation profile; E87.6 Hypokalemia; Z59.868 Other specified financial insecurity; R94.4 Abnormal results of kidney function studies; Z59.82 Transportation insecurity; Z95.810 Presence of automatic (implantable) cardiac defibrillator; R06.02 Shortness of breath